=== PATIENT | male | born 1930 | race Caucasian/White ===

== ENCOUNTER 2016-11-26 17:16 | Inpatient (IN) | payer MEDICARE, MEDICAID ==
[~2016-11-26] VITALS: Ht 167.6 cm; Wt 69.4 kg
[2016-11-26 18:29] VITALS: BP 168/59
[2016-11-26 18:30] VITALS: BP 168/59
[2016-11-26] MEDS ORDERED: ACETAMINOPHEN 500MG TABLET PO PRN (19:30)
[2016-11-26] MEDS ORDERED: AMLO10TA80 PO (19:53)
[2016-11-26] MEDS ORDERED: LISI10TA5 PO (19:53)
[2016-11-26] MEDS ORDERED: SEVE800T8 PO (19:53)
[2016-11-26] MEDS ORDERED: PNEUMOCOCCAL 23-VAL P-SAC VAC 0.5 ML IM ONE (21:00)
[2016-11-26] MEDS ORDERED: ZOLPIDEM TARTRATE 5MG TABLET PO PRN (21:00)
[2016-11-27] VITALS (16 sets, daily range): BP systolic 108–174; BP diastolic 50–112
[2016-11-27] MEDS ORDERED: BLOOD SUGAR DIAGNOSTIC STRIP TEST SCH (06:00)
[2016-11-27] MEDS ORDERED: GENTAMICIN/NS IRRIGATION 0 ML IR ONE (09:20)
[2016-11-27 09:21] LABS: BASOPHILS % 0.9 % (0.0-2.0); HEMATOCRIT. 32.4 % (42.0-52.0); LYMPHOCYTES % 18.1 % (20.0-50.0); MEAN CORPUSCULAR HEMOGLOBIN 35.1 pg (28.0-32.0); MEAN CORPUSCULAR VOLUME 103.4 fL (80.0-94.0); MEAN PLATELET VOLUME 8.8 fl (7.4-10.4); MONOCYTES % 7.7 % (2.0-8.0); NEUTROPHILS % 67.3 % (40.0-76.0); PLATELET 225 x1000/uL (130-400); RED BLOOD CELL COUNT 3.13 mill/uL (4.7-6.1); RED CELL DISTRIBUTION WIDTH 15.1 % (11.6-14.6)
[2016-11-27] MEDS ORDERED: CEFAZOLIN 1000MG PREMIX 50 ML IV ONE ×2 (09:35→17:18)
[2016-11-27] MEDS ORDERED: LIDOCAINE HCL 1% 20ML VIAL (Pyxis) INJ ONE ×3 (09:35→17:54)
[2016-11-27] MEDS ORDERED: GENTAMICIN SULF 40MG/ML 2ML VIAL ONE ×3 (09:35→18:40)
[2016-11-27 09:49] LABS: INR 1.1; PARTIAL THROMBOPLASTIN TIME 26.4 sec (23.4-31.0)
[2016-11-27] MEDS ORDERED: IOHEXOL-300 100 ML BOTTLE ONE (10:16)
[2016-11-27] MEDS: NICOTINE 21MG PATCH TD SCH (13:28)
[2016-11-27] MEDS ORDERED: SODIUM BICARBONATE 4% (2.4MEQ) 5ML VIAL IV ONE (13:47)
[2016-11-27] MEDS ORDERED: MIDAZOLAM HCL 2 MG/2 ML VIAL ONE (17:20)
[2016-11-27] MEDS ORDERED: DIPHENHYDRAMINE 50MG/ML VIAL ONE (17:21)
[2016-11-27] MEDS ORDERED: FENTANYL CITRATE/PF 50MCG/ML 2ML VIAL ONE (17:21)
[2016-11-27] MEDS ORDERED: GENTAMICIN/NS IRRIGATION 500 ML IR ONE (17:38)
[2016-11-27] MEDS ORDERED: HYDROCODONE/ACETAMINOPHEN 5/325MG TABLET PO PRN (20:00)
[2016-11-27] MEDS: LISINOPRIL 10MG TABLET PO SCH (21:31)
[2016-11-28] VITALS (31 sets, daily range): BP systolic 94–150; BP diastolic 46–89
[2016-11-28 06:04] LABS: BASOPHILS % 0.4 % (0.0-2.0); EOSINOPHILS % 1.9 % (0.0-5.0); HEMOGLOBIN. 11.5 g/dL (14.0-18.0); LYMPHOCYTES % 12.4 % (20.0-50.0); MEAN CORPUSCULAR HEMOGLOBIN 35.4 pg (28.0-32.0); MEAN CORPUSCULAR VOLUME 101.6 fL (80.0-94.0); MEAN PLATELET VOLUME 8.6 fl (7.4-10.4); MONOCYTES % 6.9 % (2.0-8.0); NEUTROPHILS % 78.4 % (40.0-76.0); PLATELET 236 x1000/uL (130-400); RED BLOOD CELL COUNT 3.25 mill/uL (4.7-6.1); RED CELL DISTRIBUTION WIDTH 14.6 % (11.6-14.6)
[2016-11-28 06:26] LABS: CARBON DIOXIDE 24 mEq/L (21-32); CHLORIDE 99 mEq/L (98-107)
[2016-11-28 07:20] LABS: PHOSPHORUS 8.4 mg/dL (2.5-4.9)
[2016-11-28] MEDS: FOLIC ACID/VITAMIN B COMP W-C TABLET PO SCH (08:40)
[2016-11-28] MEDS: NICOTINE 21MG PATCH TD SCH (10:32)
[2016-11-28] MEDS: LISINOPRIL 10MG TABLET PO SCH (22:12)
[2016-11-29] VITALS (20 sets, daily range): BP systolic 85–139; BP diastolic 27–92
[2016-11-29] MEDS: FOLIC ACID/VITAMIN B COMP W-C TABLET PO SCH (08:12)
[2016-11-29] MEDS: NICOTINE 21MG PATCH TD SCH (08:13)
[2016-11-29 08:32] LABS: BASOPHILS % 0.7 % (0.0-2.0); HEMATOCRIT. 34.2 % (42.0-52.0); HEMOGLOBIN. 11.6 g/dL (14.0-18.0); LYMPHOCYTES % 15.1 % (20.0-50.0); MEAN CORPUSCULAR HEMOGLOBIN 34.9 pg (28.0-32.0); MEAN CORPUSCULAR VOLUME 102.9 fL (80.0-94.0); MEAN PLATELET VOLUME 8.9 fl (7.4-10.4); MONOCYTES % 9.1 % (2.0-8.0); NEUTROPHILS % 72.1 % (40.0-76.0); PLATELET 210 x1000/uL (130-400); RED BLOOD CELL COUNT 3.32 mill/uL (4.7-6.1); RED CELL DISTRIBUTION WIDTH 15.4 % (11.6-14.6)
[2016-11-29 09:38] LABS: PHOSPHORUS 5.9 mg/dL (2.5-4.9)
[2016-11-29] MEDS: SEVELAMER CARBONATE 800 MG TABLET PO SCH (17:15)
[2016-11-29] MEDS: LISINOPRIL 10MG TABLET PO SCH (21:15)
[2016-11-30] VITALS (21 sets, daily range): BP systolic 83–156; BP diastolic 46–107
[2016-11-30 05:52] LABS: BASOPHILS % 0.6 % (0.0-2.0); EOSINOPHILS % 3.9 % (0.0-5.0); HEMATOCRIT. 32.7 % (42.0-52.0); HEMOGLOBIN. 11.3 g/dL (14.0-18.0); LYMPHOCYTES % 15.7 % (20.0-50.0); MEAN CORPUSCULAR HEMOGLOBIN 35.4 pg (28.0-32.0); MEAN CORPUSCULAR VOLUME 102.8 fL (80.0-94.0); MEAN PLATELET VOLUME 8.7 fl (7.4-10.4); NEUTROPHILS % 70.8 % (40.0-76.0); PLATELET 198 x1000/uL (130-400); RED BLOOD CELL COUNT 3.18 mill/uL (4.7-6.1); RED CELL DISTRIBUTION WIDTH 14.9 % (11.6-14.6)
[2016-11-30 07:15] LABS: PHOSPHORUS 6.5 mg/dL (2.5-4.9); T4 FREE 1.11 ng/dL (0.76-1.46)
[2016-11-30] MEDS: SEVELAMER CARBONATE 800 MG TABLET PO SCH ×3 (07:20→17:45)
[2016-11-30] MEDS: FOLIC ACID/VITAMIN B COMP W-C TABLET PO SCH (08:37)
[2016-11-30] MEDS: NICOTINE 21MG PATCH TD SCH (09:14)
[2016-11-30] MEDS ORDERED: LIDOCAINE HCL 1% 20ML VIAL (Pyxis) INJ ONE (10:39)
[2016-11-30] MEDS ORDERED: CEFAZOLIN 1000MG PREMIX 50 ML IV ONE ×2 (10:39→11:00)
[2016-11-30] MEDS ORDERED: SODIUM BICARBONATE 4% (2.4MEQ) 5ML VIAL IV ONE (10:40)
[2016-11-30] MEDS ORDERED: FENTANYL CITRATE/PF 50MCG/ML 2ML VIAL ONE (11:35)
[2016-11-30] MEDS ORDERED: FENTANYL CITRATE/PF 50MCG/ML 2ML VIAL IV ONE (11:45)
[2016-11-30] MEDS: LISINOPRIL 10MG TABLET PO SCH (20:59)
[2016-12-01] VITALS (8 sets, daily range): BP systolic 105–130; BP diastolic 57–106
[2016-12-01 06:18] LABS: BASOPHILS % 0.5 % (0.0-2.0); EOSINOPHILS % 2.6 % (0.0-5.0); HEMATOCRIT. 32.8 % (42.0-52.0); HEMOGLOBIN. 11.2 g/dL (14.0-18.0); LYMPHOCYTES % 10.1 % (20.0-50.0); MEAN CORPUSCULAR HEMOGLOBIN 35.5 pg (28.0-32.0); MEAN PLATELET VOLUME 8.8 fl (7.4-10.4); MONOCYTES % 9.5 % (2.0-8.0); NEUTROPHILS % 77.3 % (40.0-76.0); PLATELET 195 x1000/uL (130-400); RED BLOOD CELL COUNT 3.16 mill/uL (4.7-6.1); RED CELL DISTRIBUTION WIDTH 15.1 % (11.6-14.6)
[2016-12-01 06:52] LABS: PHOSPHORUS 4.6 mg/dL (2.5-4.9)
[2016-12-01] MEDS: FOLIC ACID/VITAMIN B COMP W-C TABLET PO SCH (08:24)
[2016-12-01] MEDS: SEVELAMER CARBONATE 800 MG TABLET PO SCH (08:24)
[2016-12-01] MEDS: NICOTINE 21MG PATCH TD SCH (08:25)
== END 2016-12-01 12:26 | disposition home or self-care (01) | DRG 242 ==
LOC: 3WST 17:16
PROVIDERS: ADMIT Specialist; ATTEND Specialist
PROC: 0JH606Z Insertion of Pacemaker, Dual Chamber into Chest Subcutaneous Tissue and Fascia, Open Approach (ICD-10-PCS; principal; 2016-11-27)
PROC: 02HK3JZ Insertion of Pacemaker Lead into Right Ventricle, Percutaneous Approach (ICD-10-PCS; 2016-11-27)
PROC: 02H63JZ Insertion of Pacemaker Lead into Right Atrium, Percutaneous Approach (ICD-10-PCS; 2016-11-27)
PROC: 02PYX3Z Removal of Infusion Device from Great Vessel, External Approach (ICD-10-PCS; 2016-11-27)
PROC: 06HM33Z Insertion of Infusion Device into Right Femoral Vein, Percutaneous Approach (ICD-10-PCS; 2016-11-27)
PROC: 5A1D70Z Performance of Urinary Filtration, Intermittent, Less than 6 Hours Per Day (ICD-10-PCS; 2016-11-27)
PROC: 5A1D70Z Performance of Urinary Filtration, Intermittent, Less than 6 Hours Per Day (ICD-10-PCS; 2016-11-28)
PROC: 02HV33Z Insertion of Infusion Device into Superior Vena Cava, Percutaneous Approach (ICD-10-PCS; 2016-11-30)
PROC: B5181ZA Fluoroscopy of Superior Vena Cava using Low Osmolar Contrast, Guidance (ICD-10-PCS; 2016-11-30)
PROC: 5A1D70Z Performance of Urinary Filtration, Intermittent, Less than 6 Hours Per Day (ICD-10-PCS; 2016-11-30)
DX: I44.2 Atrioventricular block, complete (principal); N18.6 End stage renal disease; E11.22 Type 2 diabetes mellitus with diabetic chronic kidney disease; I13.11 Hypertensive heart and chronic kidney disease without heart failure, with stage 5 chronic kidney disease, or end stage renal disease; T82.898A Other specified complication of vascular prosthetic devices, implants and grafts, initial encounter; R32 Unspecified urinary incontinence; E78.5 Hyperlipidemia, unspecified; F17.210 Nicotine dependence, cigarettes, uncomplicated; H40.9 Unspecified glaucoma; I25.10 Atherosclerotic heart disease of native coronary artery without angina pectoris; I25.2 Old myocardial infarction; Z79.82 Long term (current) use of aspirin; Z79.899 Other long term (current) drug therapy; Z82.62 Family history of osteoporosis; Z99.2 Dependence on renal dialysis; Z83.3 Family history of diabetes mellitus; Z85.46 Personal history of malignant neoplasm of prostate; Z87.442 Personal history of urinary calculi; Z87.81 Personal history of (healed) traumatic fracture; Z71.6 Tobacco abuse counseling
CPT/HCPCS: 36415; 36556; 36589; 71010; 75822; 76937; 77001; 80048; 80053; 82962; 83735; 84100; 84439; 84443; 85025; 85610; 85730; 93005; 93306; 97167; A4565; C1750; C1752; C1769; C1893; J0690; J1200; J1580; J1642; J2250; J3010; J3490; J7030; J7050; Q9967